=== PATIENT | male | born 1970 | race Two or more races ===

== ENCOUNTER 2024-09-19 11:57 | Emergency (ER) | payer OTHER ==
[~2024-09-19] VITALS: Ht 172.7 cm; Wt 93.0 kg
[2024-09-19] MEDS ORDERED: HYDR-4182 TP (12:10)
[2024-09-19 12:22] VITALS: BP 145/91; TEMP 98.9; O2SAT 99
== END 2024-09-19 12:23 | disposition home or self-care (01) ==
LOC: ER 12:00
DX: F15.10 Other stimulant abuse, uncomplicated (principal); L30.9 Dermatitis, unspecified; F17.200 Nicotine dependence, unspecified, uncomplicated; Z60.2 Problems related to living alone